=== PATIENT | male | born 1980 | race Caucasian/White ===

== ENCOUNTER 2016-07-15 14:30 | Emergency (ER) | payer OTHER ==
[2016-07-15 14:42] VITALS: BP 143/88; PULSE 102; TEMP 98; BMI 29.8
[2016-07-15] MEDS ORDERED: predniSONE 20 MG TABLET (UD) PO ONE (15:07)
[2016-07-15] MEDS ORDERED: predniSONE 20 MG TABLET (UD) ONE (15:09)
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
== END 2016-07-15 15:56 | disposition home or self-care (01) ==
LOC: JERFT 14:30 → JER 14:30 → JERFT 15:56
DX: S39.82XA Other specified injuries of lower back, initial encounter (principal); S50.311A Abrasion of right elbow, initial encounter; W18.39XA Other fall on same level, initial encounter; Y35.811A Legal intervention involving manhandling, law enforcement official injured, initial encounter; Y93.89 Activity, other specified; Y92.89 Other specified places as the place of occurrence of the external cause; Y99.0 Civilian activity done for income or pay
CPT/HCPCS: 72100-TC; 73070-TC-RT; 99281-25

== ENCOUNTER 2017-02-07 22:13 | Emergency (ER) | payer OTHER ==
[2017-02-07 22:20] VITALS: BP 148/91; PULSE 91; TEMP 98.2; BMI 30.8
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
== END 2017-02-07 23:50 | disposition home or self-care (01) ==
LOC: JER 22:13
DX: S39.012A Strain of muscle, fascia and tendon of lower back, initial encounter (principal); S63.501A Unspecified sprain of right wrist, initial encounter; Y35.891A Legal intervention involving other specified means, law enforcement official injured, initial encounter; Y93.89 Activity, other specified; Y92.89 Other specified places as the place of occurrence of the external cause; Y99.0 Civilian activity done for income or pay; F17.210 Nicotine dependence, cigarettes, uncomplicated
CPT/HCPCS: 73110-TC-RT; 73130-TC-RT; 99282-25

== ENCOUNTER 2018-09-25 10:38 | Emergency (ER) | payer OTHER ==
[2018-09-25 10:47] VITALS: BP 127/85; PULSE 77; TEMP 98.3; BMI 31.5
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
[2018-09-25] MEDS ORDERED: IBUPROFEN 600 MG TABLET (FP) PO ONE ×2 (11:23)
== END 2018-09-25 12:04 | disposition home or self-care (01) ==
LOC: JERFT 10:38
PROC: 2W3DX1Z Immobilization of Left Lower Arm using Splint (ICD-10-PCS; principal; 2018-09-25)
DX: S69.82XA Other specified injuries of left wrist, hand and finger(s), initial encounter (principal); Y35.811A Legal intervention involving manhandling, law enforcement official injured, initial encounter; Y93.89 Activity, other specified; Y92.89 Other specified places as the place of occurrence of the external cause; Y99.0 Civilian activity done for income or pay
CPT/HCPCS: 73110-TC-LT-FY; 73130-TC-LT-FY; 99282-25